=== PATIENT | female | born 1950 | race Caucasian/White ===

== ENCOUNTER 2016-08-30 23:52 | Inpatient (IN) | payer MEDICAID ==
[~2016-08-30] VITALS: Ht 157.5 cm; Wt 90.9 kg
[2016-08-31] VITALS (8 sets, daily range): BP systolic 100–126; BP diastolic 47–58; PULSE 72–97; RESP 18–19; TEMP 98.7; Ht 157.5 cm; Wt 90.9 kg
[2016-08-31] MEDS ORDERED: SODIUM CHLORIDE 0.9% 1L BAG IV* STA (01:13)
[2016-08-31] MEDS ORDERED: CEFEPIME 2GM/50 ML (PMX) 50 ML IVPB STA (01:13)
[2016-08-31] MEDS ORDERED: ACETAMINOPHEN 325 MG TAB PO STA (01:13)
[2016-08-31] MEDS ORDERED: VANCOMYCIN 1 GM (PMX) 250 ML IVPB ONE (01:30)
--- NOTE | 2016-08-31 01:44 | RADRPT ---
PROCEDURE: XR Chest. CLINICAL INDICATION: Possible sepsis. TECHNIQUE: Single frontal view of the chest was obtained COMPARISON: None FINDINGS: The heart and mediastinum are within normal limits. Mild opacification of the right costophrenic angle, compatible with right lung base air space diseas e. There is no pleural effusion or pneumothorax. IMPRESSION: Mild right lung base air space disease may represent pneumonia in the setting of sepsis. RPTAT: [facility] Physician Den Date Time Electronically viewed and signed by Lydia Hunt Physician on 08/31/2016 01:43 RS/
[2016-08-31 01:54] LABS: ADD SCAN DIFF NO
[2016-08-31 01:57] LABS: ABNORMAL IP MESSAGE 1; BASOPHILS % 0.1 % (0.0-2.0); HEMATOCRIT 33.4 % (37.0-47.0); HEMOGLOBIN 11.1 g/dl (12.0-16.0); LYMPHOCYTES # 0.4 10^3/ul (0.8-2.9); LYMPHOCYTES % 4.5 % (15.0-51.0); MEAN CORPUSCULAR HEMOGLOBIN 28.2 pg (29.0-33.0); MEAN CORPUSCULAR HGB CONC 33.2 g/dl (32.0-37.0); MEAN CORPUSCULAR VOLUME 84.8 fl (82.0-101.0); MONOCYTE # 0.2 10^3/ul (0.3-0.9); MONOCYTES % 2.2 % (0.0-11.0); NEUTROPHIL # 8.1 10^3/ul (1.6-7.5); PLATELET COUNT 184 10^3/UL (140-415); RED BLOOD COUNT 3.94 10^6/ul (4.20-5.40); RED CELL DISTRIBUTION WIDTH 13.2 % (11.5-14.5); WHITE BLOOD COUNT 8.7 10^3/ul (4.8-10.8)
[2016-08-31 02:03] LABS: ALBUMIN 3.5 g/dl (3.3-4.9)
[2016-08-31 02:04] LABS: POTASSIUM 3.6 mmol/L (3.5-5.1)
[2016-08-31 02:06] LABS: ALBUMIN/GLOBULIN RATIO 0.92; BILIRUBIN,INDIRECT 0.3 mg/dl (0-1.1); BILIRUBIN,TOTAL 0.3 mg/dl (0.2-1.3); CREATININE 1.17 mg/dl (0.44-1.00); INR 1.16; PARTIAL THROMBOPLASTIN TIME 24.9 Sec (25.0-35.0); PROTIME 14.9 Sec (12.2-14.2); PT RATIO 1.2; TOTAL PROTEIN 7.3 g/dl (6.1-8.1)
[2016-08-31 02:07] LABS: CALCIUM 8.9 mg/dl (8.4-10.2)
[2016-08-31 02:21] LABS: TROPONIN-I 0.318 ng/ml (0.00-0.12)
--- NOTE | 2016-08-31 02:42 | ERA ---
ER Documentation Chief Complaint Date/Time DATE: 08/31/16 TIME: 02:40 Chief Complaint BROUGHT IN VIA EMS DUE TO WEAKNESS X3 DAYS AND FEVER HPI This is a 65-year-old female brought in by EMS secondary to weakness for 3 days and fever. Patient has been feeling very weak and lethargic overall. Denies any chest pain. Says she has had a mild cough. Cough nonproductive. No fevers or chills. No sick contacts. No other current complaints. ROS All systems reviewed and are negative except as per history of present illness. PMhx/Soc Medical and Surgical Hx: pt denies Surgical Hx History of Surgery: No Anesthesia Reaction: No Hx Neurological Disorder: No Hx Respiratory Disorders: No Hx Cardiac Disorders: No Hx Miscellaneous Medical Probl: No (DM2, ulcer left leg (chronic)) Hx Alcohol Use: No Hx Substance Use: No Hx Tobacco Use: No Smoking Status: Never smoker Physical Exam Vitals Vital Signs Date Time Temp Pulse Resp B/P Pulse Ox O2 Delivery O2 Flow Rate FiO2 08/31/16 02:38 98.3 18 85/41 Room Air 08/31/16 02:00 86 20 86/61 Room Air 08/31/16 00:56 102.3 106 18 108/52 97 Physical Exam Const: [] Head: Atraumatic Eyes: Normal Conjunctiva ENT: Normal External Ears, Nose and Mouth. Neck: Full range of motion..~ No meningismus. Resp: Clear to auscultation bilaterally Cardio: Regular rate and rhythm, no murmurs Abd: Soft, non tender, non distended. Normal bowel sounds Skin: No petechiae or rashes Back: No midline or flank tenderness Ext: No cyanosis, or edema Neur: Awake and alert Psych: Normal Mood and Affect Result Diagram: 08/31/1613008/31/16130 Results 24 hrs Laboratory Tests Test 08/31/16 01:31 Activated Partial Thromboplast Time 24.9Sec Alanine Aminotransferase (ALT/SGPT) 40IU/L Albumin 3.5g/dl Albumin/Globulin Ratio 0.92 Alkaline Phosphatase 191IU/L Anion Gap 19 Aspartate Amino Transf (AST/SGOT) 63IU/L Basophils # 0.010^3/ul Basophils % 0.1% Blood Urea Nitrogen 26mg/dl Calcium Level 8.9mg/dl Carbon Dioxide Level 22mmol/L Chloride Level 100mmol/L Creatinine 1.17mg/dl Direct Bilirubin 0.00mg/dl Eosinophils # 0.010^3/ul Eosinophils % 0.0% Globulin 3.80g/dl Glucose Level 255mg/dl Hematocrit 33.4% Hemoglobin 11.1g/dl INR International Normalized Ratio 1.16 Indirect Bilirubin 0.3mg/dl Lactic Acid Level 1.2mmol/L Lymphocytes # 0.410^3/ul Lymphocytes % 4.5% Mean Corpuscular Hemoglobin 28.2pg Mean Corpuscular Hemoglobin Concent 33.2g/dl Mean Corpuscular Volume 84.8fl Mean Platelet Volume 11.0fl Monocytes # 0.210^3/ul Monocytes % 2.2% Neutrophils # 8.110^3/ul Neutrophils % 93.0% Nucleated Red Blood Cells # 0.010^3/ul Nucleated Red Blood Cells % 0.0/100WBC Platelet Count 62314^3/UL Potassium Level 3.6mmol/L Prothrombin Time 14.9Sec Prothrombin Time Ratio 1.2 Red Blood Count 3.9410^6/ul Red Cell Distribution Width 13.2% Sodium Level 137mmol/L Total Bilirubin 0.3mg/dl Total Protein 7.3g/dl Troponin I 0.318ng/ml White Blood Count 8.710^3/ul Current Medications Medications (Trade) Dose Ordered Sig/Brianna Route PRN Reason Start Time Stop Time Status Last Admin Dose Admin Sodium Chloride (NS) 2,820 ml BOLUS OVER 2 HOURS STAT IV* 08/31/16 01:13 08/31/16 01:14 DC 08/31/16 02:01 Acetaminophen 650 mg 650 mg ONCE STAT PO 08/31/16 01:13 08/31/16 01:14 DC 08/31/16 02:00 Cefepime HCl 50 ml @ 100 mls/hr ONCE STAT IVPB 08/31/16 01:13 08/31/16 01:42 DC 08/31/16 02:01 Vancomycin HCl 250 ml @ 125 mls/hr ONCE ONCE IVPB 08/31/16 01:30 08/31/16 03:29 08/31/16 02:34 Sodium Chloride (NS) 1,000 ml @ 1,000 mls/hr Q1H ONCE IV 08/31/16 03:00 08/31/16 03:59 UNV Aspirin (Aspirin) 325 mg ONCE ONCE PO 08/31/16 03:00 08/31/16 03:01 UNV Procedures/MDM EKG: Rate/Rhythm: [Normal Sinus Rhythm] QRS, ST, T-waves: [No changes consistent w/ acute ischemia] Impression: [No evidence of ischemia or arrhythmia] Chest X-ray 1V Interpreted by me: Soft Tissue: No acute abnormalities Bones: No acute abnormalities Mediastinum/Cardiac Silhouette/Lungs: Right lower lobe pneumonia Medical decision makin year female with right lower lobe pneumonia. Patient was started on antibiotics. Patient also has positive troponin. Patient given aspirin. Patient will be admitted to hospitalist. Critical Care: Time: 45 minutes Treatments/Evaluations: Close monitoring and treatment of unstable vital signs, cardiorespiratory, and neurologic status, while maintaining tight balance of fluid, respiratory, and cardiac interventions. Departure Diagnosis: Primary Impression: Non-STEMI (non-ST elevated myocardial infarction) Additional Impression: Pneumonia Qualified Code: J18.9 - Pneumonia due to infectious organism, unspecified laterality, unspecified part of lung Condition: Serious UMESH ALMARAZ Aug 31, 2016 02:42
[2016-08-31] MEDS ORDERED: ASPIRIN 325 MG TAB PO ONE (03:00)
[2016-08-31] MEDS ORDERED: SOD CHLORIDE 0.9% 1,000 ML IV ONE (03:00)
--- NOTE | 2016-08-31 03:27 | HP ---
Date/Time of Note Date/Time of Note DATE: 08/31/16 TIME: 03:26 Assessment/Plan VTE Prophylaxis VTE Prophylaxis Intervention: other (Lovenox) Assessment/Plan Assessment/Plan 1) Non-STEMI (non-ST elevated myocardial infarction) - Admit to Telemetry - Cardiology Consult 2) Pneumonia Qualified Code: J18.9 - Pneumonia due to infectious organism, unspecified laterality, unspecified part of lung - Continue IV Antibiotics - Vanco and Cefepime HPI/ROS Admit Date/Time Admit Date/Time Hx of Present Illness Patient presents with a 3 day history of weakness and fever. Daughter thought her temperature was as high as 110 degrees when she took it, but my guess is that it was 101. Advil did not help. Early this morning, her daughter was really scared because patient's lips turned blue and she was shaking and vomited x 7. Patient also admitted to nausea and pain in both of her shoulders during this time. No cardiac history. No history of heart murmur. Has had a mild cough, but otherwise, no recent illness. Has Diabetes, but it has been under good control. The majority of the history was given by her daughter so that patient could continue sleeping. She roused easily and was able to answer the questions I asked her. ROS General: Admits: Fever, Chills, Poor Appetite Denies: Generalized Body Aches Eyes: Admits: Denies: Blurry Vision, Double Vision, Yellow Eyes HENT: Admits: Denies: Ear Pain/Pressure, Runny/Stuffy Nose, Sore Throat Cardiovascular: Admits: Denies: Chest Pain, Palpitations, Leg Swelling Pulmonary: Admits: Cough, mild, occasional, dry Denies: Wheeze, Shortness of Breath Gastrointestinal: Admits: Denies: Abdominal Pain, Nausea, Vomiting, Diarrhea, Blood in Stool, Black-Colored Stool Urogenital: Admits: Denies: Burning with Urination, Urinary Frequency Musculoskeletal: Admits: Mild upper back pain, but more into the shoulder region. Denies: Joint Pain, Joint Swelling, Muscle Pain Neurological: Admits: Denies: Headache, Dizziness, Numbness, Tingling, Shooting Pains Integumentary: Admits: Healing ulcer on the lower 1/3 of her left leg (where she points) Denies: Rash, Itch Endocrine: Admits: Denies: Excessive Thirst, Excessive Hunger, Intolerant to Cold , Intolerant to Heat PMH/Family/Social Social History Smoking Status: Never smoker Exam/Review of Systems Vital Signs Vitals Vital Signs Date Time Temp Pulse Resp B/P Pulse Ox O2 Delivery O2 Flow Rate FiO2 08/31/16 02:38 98.3 18 85/41 Room Air 08/31/16 02:00 86 08/31/16 00:56 97 Intake and Output 08/30/16 08/30/16 08/31/16 15:00 23:00 07:00 Intake Total 50 ml Balance 50 ml Exam Exam General: WD/WN, pleasant, overweight, [place]-speaking female, sleeping, rouses easily, in no acute distress. Eyes: Sclera White, EOMI HENT: Normocephalic/Atraumatic, External Ears/Nose Normal, Moist Mucus Membranes Neck: Supple, Trachea Midline Cardiovascular: Normal Rate, Normal Rhythm, Late Systolic murmur with possible gallop heard loudest at LUSB., no pedal edema. Radial pulses +2/4 and equal bilaterally Pulmonary: Clear to Auscultation Bilaterally, Normal Respiratory Effort, No Rales, Rhonchi or Wheezes Gastrointestinal: Normoactive Bowel Sounds, Soft, Non-Tender/Non-Distended, No Hepatosplenomegaly Appreciated, No Pulsatile Masses Urogenital: Deferred Musculoskeletal: Normal Muscle Bulk and Tone Neurological: CN II - XII Grossly Intact, Non-Focal, Speech Normal Integumentary: Normal Moisture and Temperature, Good Turgor, No Jaundice, No Rash Lymphatic: No Cervical Lymphadenopathy Psychiatric: Appropriate Mood and Affect, Good Eye Contact Labs Result Diagram: 08/31/1613008/31/16 0131 Medications Medications Current Medications Medications (Trade) Dose Ordered Sig/Brianna Route PRN Reason Start Time Stop Time Status Last Admin Dose Admin Sodium Chloride (NS) 2,820 ml BOLUS OVER 2 HOURS STAT IV* 08/31/16 01:13 08/31/16 01:14 DC 08/31/16 02:01 Acetaminophen 650 mg 650 mg ONCE STAT PO 08/31/16 01:13 08/31/16 01:14 DC 08/31/16 02:00 Cefepime HCl 50 ml @ 100 mls/hr ONCE STAT IVPB 08/31/16 01:13 08/31/16 01:42 DC 08/31/16 02:01 Vancomycin HCl 250 ml @ 125 mls/hr ONCE ONCE IVPB 08/31/16 01:30 08/31/16 03:29 08/31/16 02:34 Sodium Chloride (NS) 1,000 ml @ 1,000 mls/hr Q1H ONCE IV 08/31/16 03:00 08/31/16 03:59 UNV Aspirin (Aspirin) 325 mg ONCE ONCE PO 08/31/16 03:00 08/31/16 03:01 UNV Procedures Procedures Laboratory Tests Test 08/31/16 01:31 Activated Partial Thromboplast Time 24.9Sec Alanine Aminotransferase (ALT/SGPT) 40IU/L Albumin 3.5g/dl Albumin/Globulin Ratio 0.92 Alkaline Phosphatase 191IU/L Anion Gap 19 Aspartate Amino Transf (AST/SGOT) 63IU/L Basophils # 0.010^3/ul Basophils % 0.1% Blood Urea Nitrogen 26mg/dl Calcium Level 8.9mg/dl Carbon Dioxide Level 22mmol/L Chloride Level 100mmol/L Creatinine 1.17mg/dl Direct Bilirubin 0.00mg/dl Eosinophils # 0.010^3/ul Eosinophils % 0.0% Globulin 3.80g/dl Glucose Level 255mg/dl Hematocrit 33.4% Hemoglobin 11.1g/dl INR International Normalized Ratio 1.16 Indirect Bilirubin 0.3mg/dl Lactic Acid Level 1.2mmol/L Lymphocytes # 0.410^3/ul Lymphocytes % 4.5% Mean Corpuscular Hemoglobin 28.2pg Mean Corpuscular Hemoglobin Concent 33.2g/dl Mean Corpuscular Volume 84.8fl Mean Platelet Volume 11.0fl Monocytes # 0.210^3/ul Monocytes % 2.2% Neutrophils # 8.110^3/ul Neutrophils % 93.0% Nucleated Red Blood Cells # 0.010^3/ul Nucleated Red Blood Cells % 0.0/100WBC Platelet Count 34379^3/UL Potassium Level 3.6mmol/L Prothrombin Time 14.9Sec Prothrombin Time Ratio 1.2 Red Blood Count 3.9410^6/ul Red Cell Distribution Width 13.2% Sodium Level 137mmol/L Total Bilirubin 0.3mg/dl Total Protein 7.3g/dl Troponin I 0.318ng/ml White Blood Count 8.710^3/ul EKG: Interpreted by ER phsician Rate/Rhythm: [Normal Sinus Rhythm] QRS, ST, T-waves: [No changes consistent w/ acute ischemia] Impression: [No evidence of ischemia or arrhythmia] RADIOLOGY: PROCEDURE: XR Chest. CLINICAL INDICATION: Possible sepsis. TECHNIQUE: Single frontal view of the chest was obtained COMPARISON: None FINDINGS: The heart and mediastinum are within normal limits. Mild opacification of the right costophrenic angle, compatible with right lung base air space disease. There is no pleural effusion or pneumothorax. IMPRESSION: Mild right lung base air space disease may represent pneumonia in the setting of sepsis. BRANDEN KRUEGER DO Aug 31, 2016 03:27
[2016-08-31] MEDS ORDERED: METOCLOPRAMIDE 10 MG INJ IV PRN (04:00)
[2016-08-31] MEDS ORDERED: NITROGLYCERIN (SL) 0.4 MG TAB SL PRN (04:00)
[2016-08-31] MEDS ORDERED: VANCOMYCIN IV PER PHARMACY XX SCH (04:00)
[2016-08-31] MEDS ORDERED: morphine 2 MG INJ IV PRN (04:00)
[2016-08-31] MEDS ORDERED: NACL 0.9% 3 ML SYG IV SCH (04:00)
[2016-08-31 04:46] LABS: ADD UMIC YES; URINE BILIRUBIN (Dip) NEGATIVE (NEGATIVE); URINE BLOOD (Dip) 2+ (NEGATIVE); URINE COLOR LT. YELLOW (YELLOW); URINE GLUCOSE (Dip) NEGATIVE (NEGATIVE); URINE KETONES (Dip) NEGATIVE (NEGATIVE); URINE LEUKOCYTE ESTERASE (Dip) 1+ (NEGATIVE); URINE NITRITE (Dip) NEGATIVE (NEGATIVE); URINE TOTAL PROTEIN (Dip) NEGATIVE (NEGATIVE); URINE UROBILINOGEN (Dip) 0.2 E.U./dL (0.1-1.0)
[2016-08-31 04:57] LABS: TRANSITIONAL EPI CELLS,URINE MODERATE
[2016-08-31 04:58] LABS: BACTERIA,URINE MODERATE
[2016-08-31] MEDS: ALBUTEROL 0.083% (NEB) 2.5 MG/3 ML AMP NEB SCH ×5 (05:00→20:30)
[2016-08-31 06:31] LABS: TROPONIN-I 0.799 ng/ml (0.00-0.12)
[2016-08-31] MEDS: ENOXAPARIN 40 MG/0.4 ML SYG SC SCH (08:27)
[2016-08-31] MEDS: FAMOTIDINE 20 MG TAB PO SCH (08:27)
--- NOTE | 2016-08-31 10:22 | EN ---
Date/Time of Note Date/Time of Note DATE: 08/31/16 TIME: 10:20 Event Note Medicine Medicine Event Note Patient stable in the emergency room pending admission No events since last evaluation. Vital signs remained stable GENERAL: Well-nourished well-developed lady comfortable at rest VITAL SIGNS: per chart NECK: Supple. No JVD or lymphadenopathy. CARDIAC EXAM: S1, S2. No added sounds or murmurs. CHEST: clear bilaterally, No added sounds, rales or wheezes ABDOMEN: Soft, nontender. No guarding or rebound. EXTREMITIES: No cyanosis, clubbing or edema. NEUROLOGIC: Generalized weakness. No focal deficits. Assessment 1. Fever is unclear etiology possible early community-acquired pneumonia 2. Differential does include influenza, I have requested influenza A and B screening. 3. Positive troponins. Currently chest pain-free no acute EKG changes. Plan 1. Admit to telemetry 2. Continue antibiotics currently cefepime and vancomycin. Pending influenza screening. 3. Cardiology evaluation. Echocardiogram and Dr. Quinteros consult pending. Condition remains stable. ROWDY CARDENAS MD, [facility] Aug 31, 2016 10:22
--- NOTE | 2016-08-31 11:50 | CONS ---
Date/Time of Note Date/Time of Note DATE: 08/31/16 TIME: 11:42 Assessment/Plan Assessment/Plan Additional Assessment/Plan SIRS Elevated troponin Possible pneumonia Diabetes -Patient with fevers and chills, nausea and multiple episodes of vomiting. She denies any chest pain. ECG without significant ischemic abnormalities. Troponins are mildly elevated. Would obtain serial cardiac enzymes, check echocardiogram, continue aspirin therapy, start statin therapy if no complication. IV fluids, sepsis workup and treatment. Consultation Date/Type/Reason Admit Date/Time Type of Consultation: cv Reason for Consultation Elevated troponin Hx of Present Illness This is a 65-year-old female past medical history of diabetes presents with fevers, chills, nausea and vomiting. Patient has been feeling weak over the past 2 days and yesterday with fevers and rigors. She then vomited several times. Because of the above symptoms, she came to the emergency room for evaluation and care. She is currently feeling better. She denies any chest pain, shortness of breath, abdominal pain. She still has occasional episodes of nausea. Prior to this episode, she denies exertional chest pain or shortness of breath, dizziness or lightheadedness. She denies any prior cardiac history. 12 point review of systems was performed with all pertinent positives and negatives mentioned above and all else is negative Past Medical History Medical History: diabetes Family History Significant Family History: no pertinent family hx Social History Alcohol Use: none Smoking Status: Never smoker Other Social History Lives at home with family Exam/Review of Systems Vital Signs Vitals Vital Signs Date Time Temp Pulse Resp B/P Pulse Ox O2 Delivery O2 Flow Rate FiO2 08/31/16 11:06 71 22 106/47 100 Room Air 08/31/16 09:20 21 08/31/16 03:37 98.7 Intake and Output 08/30/16 08/30/16 08/31/16 15:00 23:00 07:00 Intake Total 3300 ml Balance 3300 ml Exam No apparent distress Constitutional: alert, oriented, well developed Head: normocephalic Neck: supple Respiratory: other (Coarse breath sounds bilaterally, no wheezing) Cardiovascular: other (S1-S2 heard), regular rate and rhythm Gastrointestinal: bowel sounds, non-tender, other (No guarding), soft Extremities: other (No edema or cyanosis) Results Result Diagram: 08/31/16 0131 08/31/16 0131 Results 24 hrs Laboratory Tests Test 08/31/16 01:31 08/31/16 03:30 08/31/16 04:07 08/31/16 05:00 White Blood Count 8.7 Red Blood Count 3.94 L Hemoglobin 11.1 L Hematocrit 33.4 L Mean Corpuscular Volume 84.8 Mean Corpuscular Hemoglobin 28.2 L Mean Corpuscular Hemoglobin Concent 33.2 Red Cell Distribution Width 13.2 Platelet Count 184 Mean Platelet Volume 11.0 H Neutrophils % 93.0 H Lymphocytes % 4.5 L Monocytes % 2.2 Eosinophils % 0.0 Basophils % 0.1 Nucleated Red Blood Cells % 0.0 Neutrophils # 8.1 H Lymphocytes # 0.4 L Monocytes # 0.2 L Eosinophils # 0.0 Basophils # 0.0 Nucleated Red Blood Cells # 0.0 Prothrombin Time 14.9 H Prothrombin Time Ratio 1.2 INR International Normalized Ratio 1.16 Activated Partial Thromboplast Time 24.9 L Sodium Level 137 Potassium Level 3.6 Chloride Level 100 Carbon Dioxide Level 22 Anion Gap 19 H Blood Urea Nitrogen 26 H Creatinine 1.17 H Glucose Level 255 H Lactic Acid Level 1.2 0.6 Calcium Level 8.9 Total Bilirubin 0.3 Direct Bilirubin 0.00 Indirect Bilirubin 0.3 Aspartate Amino Transf (AST/SGOT) 63 H Alanine Aminotransferase (ALT/SGPT) 40 Alkaline Phosphatase 191 H Troponin I 0.318 *H Total Protein 7.3 Albumin 3.5 Globulin 3.80 H Albumin/Globulin Ratio 0.92 Urine Color LT. YELLOW Urine Clarity CLEAR Urine pH 5.5 Urine Specific [place] <=1.005 L Urine Ketones NEGATIVE Urine Nitrite NEGATIVE Urine Bilirubin NEGATIVE Urine Urobilinogen 0.2 E.U./dL Urine Leukocyte Esterase 1+ H Urine Microscopic RBC 5-10 Urine Microscopic WBC 10-25 Urine Transitional Epithelial Cells MODERATE Urine Bacteria MODERATE Urine Hemoglobin 2+ H Urine Glucose NEGATIVE Urine Total Protein NEGATIVE Bedside Glucose 171 Test 08/31/16 05:20 Lactic Acid Level 1.0 Creatine Kinase 66 Creatine Kinase Index 1.5 Creatinine Kinase MB (Mass) 1.00 Troponin I 0.799 *H Medications Medications Current Medications Metoclopramide HCl (Reglan) 10 mg Q6H PRN IV NAUSEA AND/OR VOMITING; Start at 04:00 Nitroglycerin (Nitroglycerin (Sl Tab) 0.4 Mg) 1 tab Q5M PRN SL CHEST PAIN; Start 08/31/16 at 04:00 Acetaminophen (Tylenol Tab) 650 mg Q6H PRN PO PAIN LEVEL 1-3 OR FEVER; Start at 04:00 Morphine Sulfate (morphine) 2 mg Q4H PRN IV PAIN LEVEL 7-10; Start 08/31/16 at 04:00 Famotidine (Pepcid) 20 mg DAILY PO Last administered on 08/31/16 08:27; Admin Dose 20 MG; Start 08/31/16 at 09:00 Enoxaparin Sodium 40 mg 40 mg DAILY SC Last administered on 08/31/16 08:27; Admin Dose 40 MG; Start 08/31/16 at 09:00 Cefepime HCl 50 ml @ 100 mls/hr Q8 IV ; Start 08/31/16 at 14:00 Vancomycin HCl/ Sodium Chloride (Vancocin/NS) 250 ml @ 83.333 mls/ hr Q24H IVPB ; Start 08/31/16 at 23:00 Procedures Procedures Sinus tachycardia at 116 bpm, QRS 82 ms, nonspecific STT wave abnormalities Aaron Quinteros DO Aug 31, 2016 11:50
[2016-08-31] MEDS ORDERED: NPH,100I5 SQ (12:44)
[2016-08-31] MEDS: CEFEPIME 2GM/50 ML (PMX) 50 ML IV SCH ×2 (15:26→23:31)
[2016-08-31] MEDS: INSULIN ASPART [NOVOLOG] 3 ML PEN SC SCH ×2 (17:27→21:23)
--- NOTE | 2016-08-31 17:34 | RADRPT ---
Echocardiogram Report Patient Name: ELLEN SILVA Gender: Female Date: 1950 Study Date: 31-Aug-2016 Pasting Machine Operator: Jb Booker JEANINE Location: [facility] Ref. Physician: BRANDEN KRUEGER Quality: Good Procedures: Transthoracic echocardiogram with complete 2D, M-Mode, and doppler examination. Indications: Elevated troponin=0.314. Murmur. 2D/M Mode Doppler Measurement Value Normal Ranges Measurement Value Normal Ranges LVIDd 2D 4.4 3.5 - 5.6 cm AV Peak Juma 1.8 m/sec LVIDs 2D 2.5 2.1 - 4.1 cm AV Peak PG 13.0 mmHg FS 2D 42.8 % LVOT Peak Juma 1.4 m/sec LVPWd 2D 0.9 0.6 - 1.1 cm LVOT Peak PG 8.0 mmHg IVSd 2D 1.0 0.6 - 1.1 cm MV E Peak Juma 0.7 m/sec IVS/LVPW 2D 1.0 MV A Peak Juma 1.0 m/sec AoR Diam 2D 3.1 2.0 - 3.7 cm MV E/A 0.7 LA/Ao 2D 1 0 - 1 MV Decel Time 211 msec EDV 2D 86.4 cm3 MV E/A 0.7 ESV 2D 16.2 cm3 LA Dimen 2D 3.4 2.3 - 4.0 cm Findings Left Ventricle: Normal left ventricular systolic function. Normal left ventricular cavity size. Normal left ventricular wall thickness. Ejection fraction is visually estimated at 65 %. Tissue Doppler/Mitral Doppler indices are consistent with impaired relaxation (Stage I diastolic dysfunction). Right Ventricle: Normal right ventricular size. Normal right ventricular systolic function. Left Atrium: The left atrium is normal in size. Right Atrium: The right atrium is normal in size. Mitral Valve: Normal appearance and function of the mitral valve with trace physiologic regurgitation. Aortic Valve: No significant aortic stenosis or insufficiency. Aortic cusps appear mildly calcified. Tricuspid Valve: Normal appearance and function of the tricuspid valve with trace physiologic regurgitation. Pulmonic Valve: Normal pulmonic valve appearance. There is trace pulmonic regurgitation. Pericardium: Normal pericardium with no significant pericardial effusion. Aorta: Normal aortic root. IVC: Normal size and normal respiratory collapse consistent with normal right atrial pressure. Conclusions 1.Normal left ventricular systolic function. Normal left ventricular cavity size. Normal left ventricular wall thickness. Ejection fraction is visually estimated at 65 %. Tissue Doppler/Mitral Doppler indices are consistent with impaired relaxation (Stage I diastolic dysfunction). 2.Normal right ventricular size. Normal right ventricular systolic function. 3.The left atrium is normal in size. 4.The right atrium is normal in size. 5.No significant valvular stenosis or regurgitation seen. 6.Normal pericardium with no significant pericardial effusion. Electronically Signed By: Aaron Quinteros 31-Aug-2016 17:33:57 -0700 Patient Name: ELLEN SILVA Study Date: 31-Aug-2016 [id number]
[2016-08-31] MEDS: ATORVASTATIN 40 MG TAB PO SCH (21:09)
[2016-08-31] MEDS: NPH, HUMAN INSULIN ISOPHANE 3ML VIAL SC SCH (21:13)
[2016-09-01] VITALS (10 sets, daily range): BP systolic 98–114; BP diastolic 51–56; PULSE 84–107; RESP 19–20
[2016-09-01] MEDS: VANCOMYCIN 1.25 GM in SOD CHLORIDE 0.9% 250 ML IVPB SCH ×2 (00:46→23:30)
[2016-09-01] MEDS: ALBUTEROL 0.083% (NEB) 2.5 MG/3 ML AMP NEB SCH ×5 (00:50→17:01)
[2016-09-01] MEDS ORDERED: ACCU-CHEK XX SCH (02:00)
[2016-09-01] MEDS: ACCU-CHEK XX SCH (02:00)
[2016-09-01] MEDS: CEFEPIME 2GM/50 ML (PMX) 50 ML IV SCH ×3 (05:04→22:15)
[2016-09-01] MEDS: ACETAMINOPHEN 325 MG TAB PO PRN ×2 (05:04→16:37)
[2016-09-01 06:54] LABS: ADD SCAN DIFF NO
[2016-09-01 07:04] LABS: HEMATOCRIT 28.9 % (37.0-47.0); HEMOGLOBIN 9.4 g/dl (12.0-16.0); LYMPHOCYTES # 0.7 10^3/ul (0.8-2.9); LYMPHOCYTES % 9.6 % (15.0-51.0); MEAN CORPUSCULAR HEMOGLOBIN 28.2 pg (29.0-33.0); MEAN CORPUSCULAR HGB CONC 32.5 g/dl (32.0-37.0); MEAN CORPUSCULAR VOLUME 86.8 fl (82.0-101.0); MEAN PLATELET VOLUME 11.2 fl (7.4-10.4); MONOCYTE # 0.5 10^3/ul (0.3-0.9); MONOCYTES % 6.4 % (0.0-11.0); NEUTROPHILS % 83.4 % (39.0-77.0); PLATELET COUNT 146 10^3/UL (140-415); RED BLOOD COUNT 3.33 10^6/ul (4.20-5.40); RED CELL DISTRIBUTION WIDTH 13.8 % (11.5-14.5); WHITE BLOOD COUNT 7.2 10^3/ul (4.8-10.8)
[2016-09-01 07:07] LABS: CALCIUM 8.3 mg/dl (8.4-10.2); CREATININE 0.98 mg/dl (0.44-1.00)
[2016-09-01 07:08] LABS: CHOL/HDL RATIO 4.8 RATIO
[2016-09-01] MEDS: INSULIN ASPART [NOVOLOG] 3 ML PEN SC SCH ×6 (07:55→21:19)
[2016-09-01] MEDS: FAMOTIDINE 20 MG TAB PO SCH (08:34)
[2016-09-01] MEDS: ASPIRIN 81 MG TAB PO SCH (08:34)
[2016-09-01] MEDS: ENOXAPARIN 40 MG/0.4 ML SYG SC SCH (08:38)
[2016-09-01] MEDS: NPH, HUMAN INSULIN ISOPHANE 3ML VIAL SC SCH (09:41)
[2016-09-01] MEDS ORDERED: DOCUSATE SODIUM 100 MG CAP PO PRN (15:30)
[2016-09-01] MEDS ORDERED: ONDANSETRON 4 MG INJ IV PRN (15:30)
--- NOTE | 2016-09-01 15:34 | PN ---
Date/Time of Note Date/Time of Note DATE: 09/01/16 TIME: 15:30 Assessment/Plan VTE Prophylaxis VTE Prophylaxis Intervention: LMWH Lines/Catheters IV C[facility]ter Type [facility]from [facility] Saline Lock Assessment/Plan Chief Complaint/Hosp Course S: No distress. Cough with white expectoration. No hemoptysis. No chest pain or edema. O: Vss sr/st P No pallor JVD Ctab Bs +nt nd no r/r/g Ext- no edema/Homans sign A/P 1. Sepsis/community-acquired pneumonia assoc. Stable cont antibiotics. home tomorrow if stable. 2. CAP. Influenza titers pending 3. Abn troponin/fever, likely due to #1. Rule out ACS. Consider outpatient stress test 4. Diabetes/metabolic syndrome/dyslipidemia, continue aspirin risk factor modification 5. Anemia, we will replace with iron Problems: Exam/Review of Systems Vital Signs Vitals Vital Signs Date Time Temp Pulse Resp B/P Pulse Ox O2 Delivery O2 Flow Rate FiO2 09/01/16 13:13 75 18 99 21 09/01/16 11:29 98.0 111/56 08/31/16 11:46 Room Air Intake and Output 08/31/16 08/31/16 09/01/16 15:00 23:00 07:00 Intake Total 1400 ml 650.00 ml Balance 1400 ml 650.00 ml Results Result Diagram: 09/01/16 0632 09/01/16 0635 Results 24 hrs Laboratory Tests Test 08/31/16 17:22 08/31/16 17:55 08/31/16 21:05 09/01/16 03:32 Bedside Glucose 187 255 H 195 Troponin I 0.673 *H Test 09/01/16 06:32 09/01/16 06:35 09/01/16 08:09 09/01/16 11:48 White Blood Count 7.2 Red Blood Count 3.33 L Hemoglobin 9.4 L Hematocrit 28.9 L Mean Corpuscular Volume 86.8 Mean Corpuscular Hemoglobin 28.2 L Mean Corpuscular Hemoglobin Concent 32.5 Red Cell Distribution Width 13.8 Platelet Count 146 # Mean Platelet Volume 11.2 H Neutrophils % 83.4 H Lymphocytes % 9.6 L Monocytes % 6.4 Eosinophils % 0.0 Basophils % 0.0 Nucleated Red Blood Cells % 0.0 Neutrophils # 6.0 Lymphocytes # 0.7 L Monocytes # 0.5 Eosinophils # 0.0 Basophils # 0.0 Nucleated Red Blood Cells # 0.0 Hemoglobin A1c 12.4 H Sodium Level 140 Potassium Level 4.0 Chloride Level 106 Carbon Dioxide Level 21 Anion Gap 17 H Blood Urea Nitrogen 13 # Creatinine 0.98 Glucose Level 236 H Calcium Level 8.3 L Triglycerides Level 154 H Cholesterol Level 116 LDL Cholesterol, Calculated 61 HDL Cholesterol 24 L Cholesterol/HDL Ratio 4.8 Bedside Glucose 258 H 272 H Medications Medications Current Medications Metoclopramide HCl (Reglan) 10 mg Q6H PRN IV NAUSEA AND/OR VOMITING; Start at 04:00 Nitroglycerin (Nitroglycerin (Sl Tab) 0.4 Mg) 1 tab Q5M PRN SL CHEST PAIN; Start 08/31/16 at 04:00 Acetaminophen (Tylenol Tab) 650 mg Q6H PRN PO PAIN LEVEL 1-3 OR FEVER Last administered on 09/01/16 05:04; Admin Dose 650 MG; Start 08/31/16 at 04:00 Morphine Sulfate (morphine) 2 mg Q4H PRN IV PAIN LEVEL 7-10; Start 08/31/16 at 04:00 Famotidine (Pepcid) 20 mg DAILY PO Last administered on 09/01/16 08:34; Admin Dose 20 MG; Start 08/31/16 at 09:00 Enoxaparin Sodium 40 mg 40 mg DAILY SC Last administered on 09/01/16 08:38; Admin Dose 40 MG; Start 08/31/16 at 09:00 Cefepime HCl 50 ml @ 100 mls/hr Q8 IV Last administered on 09/01/16 14:47; Admin Dose 100 MLS/HR; Start 08/31/16 at 14:00 Vancomycin HCl/ Sodium Chloride (Vancocin/NS) 250 ml @ 83.333 mls/ hr Q24H IVPB Last administered on 09/01/16 00:46; Admin Dose 83.333 MLS/HR; Start at 23:00 Aspirin (Aspirin) 81 mg DAILY PO Last administered on 09/01/16 08:34; Admin Dose 81 MG; Start 09/01/16 at 09:00 Atorvastatin Calcium (Lipitor) 40 mg HS PO Last administered on 3/22/17at 21:09 ; Admin Dose 40 MG; Start 08/31/16 at 21:00 Diagnostic Test (Pha) (Accucheck) 1 ea 02 XX ; Start 09/01/16 at 02:00 Albuterol (Proventil 0.083% (Neb)) 2.5 mg TID NEB ; Start 09/01/16 at 21:00; Status UNV Insulin Glargine 10 unit 10 unit DAILY@20 SC ; Start 09/01/16 at 20:00; Status UNV Ferric Sodium Gluconate Complex/ Sodium Chloride (Ferrlecit/NS) 110 ml @ 100 mls/hr Q24H IVPB ; Start 09/01/16 at 15:30; Stop 09/03/16 at 16:35; Status UNV Docusate Sodium (Colace) 200 mg BID PRN PO CONSTIPATION; Start 09/01/16 at 15: 30; Status UNV Ondansetron HCl (Zofran Inj) 4 mg Q4H PRN IV NAUSEA AND/OR VOMITING; Start at 15:30; Status UNV HAMZAH WILSON MD Sep 01, 2016 15:34
[2016-09-01] MEDS ORDERED: GLUCAGON 1 MG INJ IM PRN (16:00)
[2016-09-01] MEDS ORDERED: GLUCOSE GEL 15 GRAM TUBE PO PRN ×2 (16:00)
[2016-09-01] MEDS ORDERED: GLUCOSE GEL 15 GRAM TUBE BUCCAL PRN (16:00)
[2016-09-01] MEDS ORDERED: DEXTROSE 50% 50 ML SYRINGE IV PRN ×2 (16:00)
--- NOTE | 2016-09-01 16:22 | RADRPT ---
PROCEDURE: US bilateral lower extremity veins. CLINICAL INDICATION: Bilateral leg pain and swelling. TECHNIQUE: Multiple longitudinal and transverse images of the bilateral lower extremity veins were obtained with gordon scale and color Doppler imaging. The common femoral vein, femoral vein, and popl iteal vein were evaluated. 2D grayscale measurements with compression sonography, color Doppler, and pulsed Doppler with augmentation. COMPARISON: No prior studies are available for comparison. FINDINGS: The right common femoral, femoral and popliteal veins are normally compressible throughout. Color f low demonstrates normal filling of the vessels. Normal waveforms are visualized and there is normal response to augmentation. On the left side, there is partial compressibility of the left common femoral vein consistent with o ld deep venous thrombosis with a small amount of residual organized clot. The left femoral vein and left popliteal vein demonstrate normal flow and compressibility. IMPRESSION: 1. Chronic deep venous thrombosis of the left common femoral vein with partial compressibility. 2. Otherwise normal venous system of both lower extremities. RPTAT: QQ .Otis Hanna MD, MD Date Time Electronically viewed and signed by .Otis Hanna MD, on 09/01/2016 16:21 .R/
[2016-09-01] MEDS: SOD FERRIC GLUC COMPLX 125 MG in SOD CHLORIDE 0.9% 100 ML IVPB SCH (18:03)
[2016-09-01] MEDS ORDERED: INSULIN GLARGINE [LANtus] 3 ML PEN SC SCH (20:00)
[2016-09-01] MEDS: ATORVASTATIN 40 MG TAB PO SCH (21:09)
[2016-09-02] VITALS (13 sets, daily range): BP systolic 112–129; BP diastolic 53–61; PULSE 77–84; RESP 17–20
[2016-09-02] MEDS: ACETAMINOPHEN 325 MG TAB PO PRN (02:18)
[2016-09-02] MEDS: ACCU-CHEK XX SCH (02:26)
[2016-09-02] MEDS: CEFEPIME 2GM/50 ML (PMX) 50 ML IV SCH ×2 (05:49→13:44)
[2016-09-02 06:13] LABS: ADD SCAN DIFF NO
[2016-09-02 06:53] LABS: BASOPHILS % 0.1 % (0.0-2.0); HEMATOCRIT 30.8 % (37.0-47.0); HEMOGLOBIN 9.8 g/dl (12.0-16.0); LYMPHOCYTES # 1.1 10^3/ul (0.8-2.9); LYMPHOCYTES % 14.9 % (15.0-51.0); MEAN CORPUSCULAR HEMOGLOBIN 27.5 pg (29.0-33.0); MEAN CORPUSCULAR HGB CONC 31.8 g/dl (32.0-37.0); MEAN CORPUSCULAR VOLUME 86.3 fl (82.0-101.0); MEAN PLATELET VOLUME 11.1 fl (7.4-10.4); MONOCYTE # 0.6 10^3/ul (0.3-0.9); MONOCYTES % 7.8 % (0.0-11.0); NEUTROPHIL # 5.8 10^3/ul (1.6-7.5); NEUTROPHILS % 76.9 % (39.0-77.0); PLATELET COUNT 191 10^3/UL (140-415); RED BLOOD COUNT 3.57 10^6/ul (4.20-5.40); RED CELL DISTRIBUTION WIDTH 14.2 % (11.5-14.5); WHITE BLOOD COUNT 7.6 10^3/ul (4.8-10.8)
[2016-09-02 06:54] LABS: POTASSIUM 3.8 mmol/L (3.5-5.1)
[2016-09-02 06:57] LABS: CREATININE 0.96 mg/dl (0.44-1.00)
[2016-09-02 06:58] LABS: CALCIUM 9.1 mg/dl (8.4-10.2); PHOSPHORUS 2.8 mg/dl (2.5-4.9)
[2016-09-02 07:00] LABS: IRON 87 ug/dl (35-150)
[2016-09-02 07:09] LABS: TOTAL IRON BINDING CAPACITY 263 ug/dl (241-421)
[2016-09-02] MEDS: ALBUTEROL 0.083% (NEB) 2.5 MG/3 ML AMP NEB SCH ×2 (07:33→12:43)
--- NOTE | 2016-09-02 07:40 | RADRPT ---
PROCEDURE: Chest Radiograph. CLINICAL INDICATION: Cough TECHNIQUE: Single frontal chest radiograph. COMPARISON: Chest radiograph 08/31/2016 FINDINGS: Heart size is within normal limits. Atherosclerotic calcifications are present. There is mild biba silar atelectasis. No infiltrate or effusion is seen. The bones are intact. IMPRESSION: 1. Mild bibasilar atelectasis. 2. Atherosclerotic vascular disease. RPTAT: HJBF .Joey Vera MD, MD Date Time Electronically viewed and signed by .Joey Vera MD, on 09/02/2016 07:39 .B/
[2016-09-02] MEDS: INSULIN ASPART [NOVOLOG] 3 ML PEN SC SCH ×6 (08:02→17:36)
[2016-09-02] MEDS: ASPIRIN 81 MG TAB PO SCH (08:52)
[2016-09-02] MEDS: FAMOTIDINE 20 MG TAB PO SCH (08:52)
[2016-09-02] MEDS: ENOXAPARIN 40 MG/0.4 ML SYG SC SCH (08:57)
[2016-09-02] MEDS ORDERED: COLLAGENASE 30 GM TUBE TOP SCH (14:00)
--- NOTE | 2016-09-02 15:04 | CONS ---
Date/Time of Note Date/Time of Note DATE: 09/02/16 TIME: 15:00 Assessment/Plan Assessment/Plan Additional Assessment/Plan SIRS/sepsis Elevated troponin Preserved ejection fraction Possible pneumonia Diabetes -Patient's troponin elevation likely secondary to fevers/sepsis. ECG without any significant ischemic abnormalities and echocardiogram with preserved ejection fraction. Patient is well denies any symptoms of chest discomfort or shortness of breath. Would continue aspirin and statin therapy. Antibiotics as per primary team. Consider outpatient ischemic workup. Consultation Date/Type/Reason Admit Date/Time Aug 31, 2016 at 02:40 Initial Consult Date Type of Consultation: cv 24 HR Interval Summary Free Text/Dictation Patient feeling much better, denies fevers or chills, chest pain or shortness of breath Exam/Review of Systems Vital Signs Vitals Vital Signs Date Time Temp Pulse Resp B/P Pulse Ox O2 Delivery O2 Flow Rate FiO2 09/02/16 12:44 76 18 99 21 09/02/16 11:43 98.8 112/53 08/31/16 11:46 Room Air Intake and Output 09/01/16 09/01/16 09/02/16 14:59 22:59 06:59 Intake Total 960 ml 500 ml Balance 960 ml 500 ml Exam No apparent distress Constitutional: alert, oriented Head: normocephalic Neck: supple Respiratory: other (Coarse breath sounds bilaterally, no wheezing) Cardiovascular: other (S1-S2 heard), regular rate and rhythm Gastrointestinal: bowel sounds, non-tender, other (No guarding), soft Extremities: other (No cyanosis or edema) Results Result Diagram: 09/02/16 0545 09/02/16 0545 Results 24 hrs Laboratory Tests Test 09/01/16 17:55 09/01/16 21:14 09/02/16 02:14 09/02/16 05:45 Bedside Glucose 280 H 230 H 187 White Blood Count 7.6 Red Blood Count 3.57 L Hemoglobin 9.8 L Hematocrit 30.8 L Mean Corpuscular Volume 86.3 Mean Corpuscular Hemoglobin 27.5 L Mean Corpuscular Hemoglobin Concent 31.8 L Red Cell Distribution Width 14.2 Platelet Count 191 # Mean Platelet Volume 11.1 H Neutrophils % 76.9 Lymphocytes % 14.9 L Monocytes % 7.8 Eosinophils % 0.0 Basophils % 0.1 Nucleated Red Blood Cells % 0.0 Neutrophils # 5.8 Lymphocytes # 1.1 Monocytes # 0.6 Eosinophils # 0.0 Basophils # 0.0 Nucleated Red Blood Cells # 0.0 Sodium Level 144 Potassium Level 3.8 Chloride Level 107 Carbon Dioxide Level 24 Anion Gap 17 H Blood Urea Nitrogen 12 Creatinine 0.96 Glucose Level 191 Calcium Level 9.1 Phosphorus Level 2.8 Magnesium Level 2.0 Iron Level 87 Total Iron Binding Capacity 263 Percent Iron Saturation 33 Test 09/02/16 07:57 09/02/16 12:19 Bedside Glucose 183 161 Medications Medications Current Medications Metoclopramide HCl (Reglan) 10 mg Q6H PRN IV NAUSEA AND/OR VOMITING; Start at 04:00 Nitroglycerin (Nitroglycerin (Sl Tab) 0.4 Mg) 1 tab Q5M PRN SL CHEST PAIN; Start 08/31/16 at 04:00 Acetaminophen (Tylenol Tab) 650 mg Q6H PRN PO PAIN LEVEL 1-3 OR FEVER Last administered on 09/02/16 02:18; Admin Dose 650 MG; Start 08/31/16 at 04:00 Morphine Sulfate (morphine) 2 mg Q4H PRN IV PAIN LEVEL 7-10; Start 08/31/16 at 04:00 Famotidine (Pepcid) 20 mg DAILY PO Last administered on 09/02/16 08:52; Admin Dose 20 MG; Start 08/31/16 at 09:00 Enoxaparin Sodium 40 mg 40 mg DAILY SC Last administered on 09/02/16 08:57; Admin Dose 40 MG; Start 08/31/16 at 09:00 Cefepime HCl 50 ml @ 100 mls/hr Q8 IV Last administered on 09/02/16 13:44; Admin Dose 100 MLS/HR; Start 08/31/16 at 14:00 Vancomycin HCl/ Sodium Chloride (Vancocin/NS) 250 ml @ 83.333 mls/ hr Q24H IVPB Last administered on 09/01/16 23:30; Admin Dose 83.333 MLS/HR; Start at 23:00 Aspirin (Aspirin) 81 mg DAILY PO Last administered on 09/02/16 08:52; Admin Dose 81 MG; Start 09/01/16 at 09:00 Atorvastatin Calcium (Lipitor) 40 mg HS PO Last administered on 09/01/16 21:09 ; Admin Dose 40 MG; Start 08/31/16 at 21:00 Diagnostic Test (Pha) (Accucheck) 1 ea 02 XX Last administered on 09/02/16 02: 26; Admin Dose 1 EA; Start 09/01/16 at 02:00 Insulin Glargine 10 unit 10 unit DAILY@20 SC Last administered on 09/01/16 21: 19; Admin Dose 10 UNIT; Start 09/01/16 at 20:00 Ferric Sodium Gluconate Complex/ Sodium Chloride (Ferrlecit/NS) 110 ml @ 100 mls/hr Q24H IVPB Last administered on 09/01/16 18:03; Admin Dose 100 MLS/HR; Start 09/01/16 at 17:30; Stop 09/03/16 at 18:35 Docusate Sodium (Colace) 200 mg BID PRN PO CONSTIPATION; Start 09/01/16 at 15: 30 Ondansetron HCl (Zofran Inj) 4 mg Q4H PRN IV NAUSEA AND/OR VOMITING; Start at 15:30 Miscellaneous Information 1 ea NOTE XX ; Start 09/01/16 at 16:00 Glucose (Glutose) 15 gm Q15M PRN PO DECREASED GLUCOSE; Start 09/01/16 at 16:00 Glucose (Glutose) 22.5 gm Q15M PRN PO DECREASED GLUCOSE; Start 09/01/16 at 16: 00 Dextrose (D50w Syringe) 25 ml Q15M PRN IV DECREASED GLUCOSE; Start 09/01/16 at 16:00 Dextrose (D50w Syringe) 50 ml Q15M PRN IV DECREASED GLUCOSE; Start 09/01/16 at 16:00 Glucagon (Glucagen) 1 mg Q15M PRN IM DECREASED GLUCOSE; Start 09/01/16 at 16:00 Glucose (Glutose) 15 gm Q15M PRN BUCCAL DECREASED GLUCOSE; Start 09/01/16 at 16 :00 Collagenase (Santyl) 1 applic DAILY TOP ; Start 09/02/16 at 14:00 Aaron Quinteros DO Sep 02, 2016 15:04
[2016-09-02] MEDS ORDERED: ATOR40TA68 PO (15:24)
[2016-09-02] MEDS ORDERED: ALBU18HF INH (15:24)
[2016-09-02] MEDS ORDERED: LANT3I SC (15:24)
[2016-09-02] MEDS ORDERED: ASPI81TA3 PO (15:24)
[2016-09-02] MEDS ORDERED: LEVO500T10 PO (15:24)
[2016-09-02] MEDS ORDERED: SAN30GM TOP (15:24)
[2016-09-02] MEDS ORDERED: NOVO3I SC (15:24)
[2016-09-02] MEDS ORDERED: UDROBDM PO (15:24)
[2016-09-02] MEDS ORDERED: ACET325T40 PO (15:24)
--- NOTE | 2016-09-02 15:29 | PDOCDIS ---
Discharge Instructions DIAGNOSIS Discharge Diagnosis: pneumonia CONDITION Patient Condition: Good HOME CARE INSTRUCTIONS: Special Diet: 1800 ada ACTIVITY: Activity Restrictions: Slowly Increase Activity FOLLOW UP/APPOINTMENTS Appointments pcp -[address] Quinteros 2-3wHAMZAH Leon MD Sep 02, 2016 15:29
[2016-09-02] MEDS ORDERED: GUAIFENESIN/DM 5ML CUP PO PRN (15:30)
[2016-09-02] MEDS ORDERED: ALBUTEROL HFA 8 GM INHALER INH PRN (15:30)
[2016-09-02] MEDS ORDERED: LEVOFLOXACIN 500 MG TAB PO SCH (16:00)
--- NOTE | 2016-09-02 16:03 | DS ---
DATE OF ADMISSION: 08/31/2016 DATE OF DISCHARGE: 09/02/2016 PRIMARY CARE PHYSICIAN: Unknown. DOPE FIRER: Dr. Quinteros. DIAGNOSIS ON ADMISSION: Sepsis. DIAGNOSES ON DISCHARGE: 1. Sepsis. 2. Community-acquired pneumonia, possibly viral. 3. False positive troponin. 4. Diabetes. 5. Metabolic syndrome. 6. Dyslipidemia. 7. Anemia. HOSPITAL COURSE: This is a 65-year-old diabetic admitted with coughs, fevers, tachycardia, abnormal troponin. This is apparently an infectious process. Chest x-rays are not that revealing, probably has an atypical or viral pneumonia. Her fever has not returned. She is stable and fit for dischar ge. She feels better. I will continue supportive care at home along with Levaquin and Robitussin. The patient was seen initially by Cardiology. We have trended her troponins. Obviously, she has di abetes and cardiac risk factors and we will continue to optimize her medically with a diabetic diet, low sugar, and obviously aspirin. She will be reevaluated as an outpatient for a potential cardiac stress test. The anemia is stable. She was given iron in the hospital therapy. Obviously, the large issue is diabetic care, A1c of 12. Urine shows asymptomatic organisms. DISCHARGE PLAN: Home. Follow up primary in 1 week, cardiology in 2 to 4 weeks. DIET: 1800 ADA. ACTIVITY: As tolerated. No heavy lifting. DURABLE MEDICAL EQUIPMENT: None. CODE STATUS: FULL. CONDITION: Good. BARRIERS TO DISCHARGE: None. PENDING TESTS: None. FUNCTIONAL STATUS: The patient is awake, alert. She is agreeable with plan of care. ALLERGIES: NONE KNOWN. DRUG ALLERGIES: NONE. REASON FOR ADMISSION: Again, sepsis. LABORATORY DATA: A 2D echo shows an EF of 65. No RV strain. There is , stage I. Chest x-ray shows atelectasis, right airspace disease concerning for pneumonia. Ultrasound shows ch ronic deep vein thrombosis in the left common femoral vein with partial compressibility. Insulin, th e titer is negative. Ultrasound is less than 10%. Organisms: Blood cultures negative. Sodium 144, potassium 3.8, chloride 107, bicarbonate 24, BUN and creatinine of 12 and 0.9, glucose of 190, calci um 9, phosphorus 2, magnesium of 2. Iron of 87, binding capacity of 260, percent sat of 33. Triglycerides 154, total of 116, LDL 61, HDL low at 24. Troponin is high at 0.799. A1c at 12.4. DISCHARGE MEDICATIONS: Stopped medications, none. Continued medications, none. Altered medications, none. New medications: 1. Tylenol as needed. 2. Albuterol 2 puffs every 4 as needed. 3. Aspirin 81 daily. 4. Lipitor 40 at bedtime daily. 5. Santyl application once daily ointment. 6. Robitussin-DM every 4 as needed. 7. NovoLog 5 units with meals. 8. Lantus 15 units at bedtime daily. 9. Levaquin 500 daily. Dictated By: HAMZAH GARZA/NTS Conf#: [id number] DID#: [id number] CC: SEPIDEH QUINTEROS DO;*[facility]*
[2016-09-02] MEDS: SOD FERRIC GLUC COMPLX 125 MG in SOD CHLORIDE 0.9% 100 ML IVPB SCH (17:26)
[2016-09-02] MEDS ORDERED: INSULIN GLARGINE [LANtus] 3 ML PEN SC SCH (20:00)
== END 2016-09-02 20:15 | disposition home or self-care (01) | DRG 280 ==
LOC: E/R 23:52 → TEL 08-31 02:40
PROVIDERS: ADMIT Family Medicine; ATTEND Family Medicine
DX: I21.4 Non-ST elevation (NSTEMI) myocardial infarction (principal); A41.9 Sepsis, unspecified organism; J18.9 Pneumonia, unspecified organism; E88.81 Metabolic syndrome and other insulin resistance; E11.9 Type 2 diabetes mellitus without complications; E78.5 Hyperlipidemia, unspecified; D64.9 Anemia, unspecified; Z79.82 Long term (current) use of aspirin
CPT/HCPCS: 36415; 71010; 80048; 80053; 80061; 81001; 81003; 82306; 82550; 82553; 82962; 83036; 83540; 83605; 83735; 84100; 84484; 85025; 85610; 85730; 87040; 87086; 87400; 93005; 93306; 93923; 94640; 94664; 96365; 96367; 96372; J0692; J1650; J1815; J2270; J2916; J3370; J7030; J7050